=== PATIENT | female | born 1980 | race Caucasian/White ===

== ENCOUNTER 2018-11-02 09:04 | Emergency (ER) | payer MEDICAID, SELFPAY ==
[2018-11-02 09:04] VITALS: BP 140/96; PULSE 113; RESP 18; TEMP 36.7; O2SAT 96; BMI 23.9
[2018-11-02] MEDS: 0.9% Normal Saline 1,000 ML 1000 ML IV (09:18)
--- NOTE | 2018-11-02 09:18 | ED.VIS.GEN ---
History of Present Illness Chief Complaint: Cough Informant: Patient Onset: Weeks - 1 Context: Gradual Onset Timing: Continuous Current Severity: Moderate Maximum Severity: Moderate Narrative: Patient presents with cough and congestion for the past week. She is a smoker developed a productive cough now she feels somewhat lightheaded, she cannot sleep at night because of her cough. She has generalized illness. She has no chest pain. She has no difficulty breathing. She has no rash. She thought she may have had a fever but did not take her temperature. Past Medical History - Allergies and Home Meds Allergies/Adverse Reactions: Allergies Sulfa (Sulfonamide Antibiotics) Allergy (Verified 11/02/18 09:04) Anaphylaxis Primary Care Physician: Care Physician,No Primary [Primary Care Provider] - Past Medical History: None Smoking Status: Current every day smoker Review of Systems All systems negative except as indicated General: Reports: Fever, - - She does feel lightheaded ENT: Reports: Rhinorrhea, - - Sinus tenderness. Denies: Bilateral ear pain Cardiovascular: Denies: Chest pain, Palpitations Respiratory: Reports: Cough, Sputum. Denies: Dyspnea on exertion Gastrointestinal: Denies: Abdominal pain, Nausea Musculoskeletal: Denies: Myalgias, Neck pain Neurological: Denies: Headache, Weakness Physical Exam Vital Signs/Narrative: Vital Signs Temp Pulse Resp BP Pulse Ox 11/02/18 09:04 98.1 F 113 H 18 140/96 H 96 Inital Vital Signs reviewed: Yes General: Well nourished, Well developed Head: Normocephalic Eyes: Perrl ENT: Moist mucous membranes, - - Patient has some rhinorrhea, nasal congestion. Swollen turbinates. Some sinus tenderness in the frontal region. Normal soft palate and posterior pharynx Neck: Supple Cardiovascular: Regular rate, Regular rhythm Respiratory: No distress, - - Active productive cough, no wheezing Abdomen: Soft Back: Nontender, Normal Inspection Extremities: Nontender Skin: Normal color Neurological: Alert, Normal Sensation Diagnostic/Tx/Re-eval - Medical Decision Making Patient likely has bronchitis. She is given an albuterol, x-ray ordered. She also has sinusitis and its been over a week, I do believe she meets criteria for antibiotics for the sinusitis. I will also give her an inhaler for home. She is encouraged to stop smoking Disposition discharge stable condition ED Disposition - Plan for ED Patient: Disposition: Home or Assisted Living Diagnosis: Sinusitis, Bronchitis Instructions: BRONCHITIS, Antiobiotic Treatment (Adult), Acute Sinusitis Prescriptions: Azithromycin 250 mg PO DAILY #5 tab Prescription Printed Referrals: Care Physician,No Primary [Primary Care Provider] - 3-5 Days Nitesh Montes MD [STAFF PHYSICIAN] - 3-5 Days
--- NOTE | 2018-11-02 09:22 | RAD_ITS ---
STUDY: X-RAY CHEST REASON FOR EXAM: Female, 37 years old. One-week history of cough. TECHNIQUE: Single AP portable view of the chest. COMPARISON: None. FINDINGS: Hyperinflation. The lungs are clear. There is no demonstrated pleural abnormality. Normal size heart. Normal mediastinum and chester. Normal visualized pulmonary arteries. Normal visualized aortic arch and descending thoracic aorta. Averaging rikki fixation of the thoracic spine for scoliotic surgery. Residual levoscoliosis. Normal visualized ribs, clavicles, and shoulders. There is no demonstrated abnormality of the visualized soft tissue structures of the upper abdomen. RAD/Chest 1 View (Portable) IMPRESSION: Normal x-ray examination of the chest. Electronically Signed: Tushar Silver, at 10:07 EDT , Service support ,
[2018-11-02 09:34] VITALS: PULSE 78; RESP 18
[2018-11-02] MEDS: Albuterol 2.5 MG/3 ML VIAL.NEB. INHALATION (09:34)
--- NOTE | 2018-11-02 10:11 | ED.DEP ---
ED Disposition - Plan for ED Patient: Disposition: Home or Assisted Living Diagnosis: Sinusitis, Bronchitis Instructions: Acute Sinusitis, BRONCHITIS, Antiobiotic Treatment (Adult) Prescriptions: Azithromycin 250 mg PO DAILY #5 tab Prescription Printed Referrals: Nitesh Montes MD [STAFF PHYSICIAN] - 3-5 Days Care Physician,No Primary [Primary Care Provider] - 3-5 Days
[2018-11-02 10:20] VITALS: PULSE 84; RESP 18; O2SAT 99
== END 2018-11-02 10:20 | disposition home or self-care (01) ==
LOC: ED 09:46
PROVIDERS: Emergency Provider Emergency Medicine
DX: J40 Bronchitis, not specified as acute or chronic (principal); J32.9 Chronic sinusitis, unspecified; F17.200 Nicotine dependence, unspecified, uncomplicated; Z88.2 Allergy status to sulfonamides
CPT/HCPCS: 71045; 94640; 96360; 99283; J7030

== ENCOUNTER 2019-10-22 03:01 | Observation (INO) | payer MEDICAID, SELFPAY ==
[2019-10-22] VITALS (16 sets, daily range): BP systolic 105–145; BP diastolic 65–125; PULSE 54–89; RESP 14–21; TEMP 36.7–37.2; O2SAT 98–100; BMI 26.4; BMI 23.8; BMI 23.9
--- NOTE | 2019-10-22 03:02 | ED.RN ---
NO OLD EKGS IN MUSE
--- NOTE | 2019-10-22 03:16 | EKG12_ITS ---
Test Reason : AM EKG Blood Pressure : / mmHG Vent. Rate : 054 BPM Atrial Rate : 054 BPM P-R Int : 146 ms QRS Dur : 080 ms QT Int : 404 ms P-R-T Axes : 047 005 033 degrees QTc Int : 383 ms Sinus bradycardia with sinus arrhythmia Otherwise normal ECG When compared with ECG of 22-OCT-2019 10:16, MANUAL COMPARISON REQUIRED, DATA IS UNCONFIRMED Confirmed by ARACELI GUILLERMO, ANUJ ([id number]), copy editor AMBROSE CHACON ([id number]) on 10/26/2019 11:05:45 AM Referred By: CIARAN CANALES Confirmed By:ANUJ CHARLES MD
--- NOTE | 2019-10-22 03:17 | ED.VIS.GEN ---
History of Present Illness Chief Complaint: Chest Pain Informant: Patient Onset: Today Current Severity: Moderate Maximum Severity: Moderate Narrative: Patient presents secondary to chest heaviness. She states she went to bed around 9:00 last night and felt okay but woke shortly before arrival with a feeling of chest heaviness as if someone was sitting on her chest. She has slight shortness of breath. She does have increased pain with deep breath. Patient was recently diagnosed with pneumonia and just completed a 10-day course of doxycycline. She states her pneumonia symptoms all improved. She does have a family history of cardiac disease but no personal history. She denies DVT or PE risk factors. - Past Medical History (1) Asthma Status: Chronic Past Medical History - Allergies and Home Meds Allergies/Adverse Reactions: Allergies Sulfa (Sulfonamide Antibiotics) Allergy (Verified 10/22/19 03:05) Anaphylaxis Primary Care Physician: Harris Randall MD [Primary Care Provider] - Prior records reviewed: Yes Lives: Spouse/ Significant Other Smoking Status: Current every day smoker Review of Systems General: Denies: Chills, Fever Eyes: Denies: Visual changes - bilaterally ENT: Denies: Bilateral ear pain Cardiovascular: Reports: Chest pain Respiratory: Reports: Dyspnea. Denies: Cough Gastrointestinal: Denies: Abdominal pain, Nausea, Vomiting, Diarrhea Genitourinary: Denies: Dysuria Musculoskeletal: Denies: Swelling, Extremity Pain Skin: Denies: Rash Neurological: Denies: Headache Hematologic: Denies: Easy bruising, Easy bleeding Allergy: Denies: Uticaria Physical Exam Vital Signs/Narrative: Vital Signs Temp Pulse Resp BP Pulse Ox 10/22/19 03:04 98.9 F 83 18 135/89 H 98 10/22/19 03:02 98.9 F 82 19 H 145/125 H 99 Inital Vital Signs reviewed: Yes General: Well nourished, Well developed Head: Normocephalic ENT: Moist mucous membranes Neck: Supple Cardiovascular: Regular rate, Regular rhythm Respiratory: No distress, CTA bilaterally, Chest nontender Abdomen: Soft, Nontender, Normal bowel sounds Extremities: Nontender, No edema Skin: Normal color Neurological: Alert, Oriented x3 Psychological: Normal affect Diagnostic/Tx/Re-eval Impressions Chest X-Ray 10/22/19 03:19 IMPRESSION: Negative x-ray examination of the chest. No interval change. Electronically Signed: Kali Carrillo, at 3:52 EDT Tel , Service support , 10/22/19 03:19 Chest 1 View (Portable) [RAD] Stat Laboratory Results 10/22/19 10/22/19 10/22/19 03:30 03:30 03:30 WBC 6.8 RBC 4.24 Hgb 13.6 Hct 42.6 MCV 100.5 H MCH 32.1 H MCHC 31.9 L RDW Std Deviation 50.0 H RDW Coeff of Marcy 13.5 Plt Count 338 MPV 9.8 Immature Gran % (Auto) 0.300 Neut % (Auto) 35.6 L Lymph % (Auto) 49.8 H Imperial % (Auto) 7.4 Eos % (Auto) 6.2 H Baso % (Auto) 0.7 Absolute Neuts (auto) 2.4 Absolute Lymphs (auto) 3.36 Nucleated RBC % 0 D-Dimer Quant (PE/DVT) 0.30 Sodium 143 Potassium 3.5 Chloride 109 H Carbon Dioxide 28.0 Anion Gap 6 BUN 11 Creatinine 0.82 Estim Creat Clear Calc 77.70 Est GFR (MDRD) Af Amer 100 Est GFR (MDRD) Non-Af 83 BUN/Creatinine Ratio 13.4 Glucose 88 Calcium 8.3 L Troponin I < 0.015 10/22/19 06:02 WBC RBC Hgb Hct MCV MCH MCHC RDW Std Deviation RDW Coeff of Marcy Plt Count MPV Immature Gran % (Auto) Neut % (Auto) Lymph % (Auto) Imperial % (Auto) Eos % (Auto) Baso % (Auto) Absolute Neuts (auto) Absolute Lymphs (auto) Nucleated RBC % D-Dimer Quant (PE/DVT) Sodium Potassium Chloride Carbon Dioxide Anion Gap BUN Creatinine Estim Creat Clear Calc Est GFR (MDRD) Af Amer Est GFR (MDRD) Non-Af BUN/Creatinine Ratio Glucose Calcium Troponin I 0.034 - EKG Initial EKG Interpretation: Sinus Rhythm - Sinus 84 with no acute ischemia. Follow-up EKG Interpretation: Sinus Rhythm - Sinus at 64 with no acute ischemia. - Medical Decision Making Patient was given aspirin along with morphine and Zofran on arrival. On repeat evaluation she was resting comfortably. Initial blood work is negative. She does have significant family history of heart disease. In light of this we chose to do a repeat delta troponin. Troponin did increase from less than 0.015-0.034. While this value is still technically within the negative range it has at least doubled. I spoke with Dr. Mack Dowling, on-call for cardiology. He believes it is not unreasonable to bring the patient in for cycling of cardiac enzymes to see where this peaks. It may very well remain in the negative range. Patient could then undergo stress test tomorrow morning for complete cardiac rule out. In speaking with the patient she is comfortable with this plan. I will speak with the hospitalist. ED Disposition - Plan for ED Patient: Disposition: Acute Care Hospital [facility] Diagnosis: Chest pain Referrals: Harris Randall MD [Primary Care Provider] -
--- NOTE | 2019-10-22 03:19 | RAD_ITS ---
STUDY: X-RAY CHEST REASON FOR EXAM: Female, 38 years old. c/o cp -- recent discharge from hospital for pneumonia TECHNIQUE: AP COMPARISON: 11/02/2018. FINDINGS: The lungs are clear and expanded. There is no demonstrated pleural abnormality. Normal size heart. Normal mediastinum and chester. Normal visualized pulmonary arteries. Normal visualized aortic arch and descending thoracic aorta. Normal visualized thoracic spine. Normal visualized ribs, clavicles, and shoulders. There is posterior thoracic spinal fixation. There is no demonstrated abnormality of the visualized soft tissue structures of the upper abdomen. RAD/Chest 1 View (Portable) IMPRESSION: Negative x-ray examination of the chest. No interval change. Electronically Signed: Kali Carrillo, at 3:52 EDT Tel , Service support ,
[2019-10-22] MEDS: Ondansetron 4 MG/2 ML Vial IV (03:27)
[2019-10-22] MEDS: Morphine 4 MG/ML Syringe IV (03:27)
[2019-10-22] MEDS: Aspirin 81 MG TAB.CHEW 324 MG PO (03:27)
[2019-10-22] MEDS: 0.9% Normal Saline 1,000 ML 150 ML IV (03:28)
[2019-10-22 03:53] LABS: Absolute Lymphocyte Count 3.36 X10^3/uL (0.83-4.51); Absolute Neutrophil Count 2.4 X10^3/uL (2.0-7.7); Basophil# 0.05 X10^3/uL; Basophil% 0.7 % (0-1); Eosinophil# 0.42 X10^3/uL; Eosinophils% 6.2 % (0-5); Hematocrit 42.6 % (37-47); Hemoglobin 13.6 g/dL (12.0-15.0); Lymphocyte # 3.36 X10^3/ul (4.0); Lymphocyte % 49.8 % (19-41); Mean Corp Hgb Conc 31.9 g/dL (32-36); Mean Corpuscular Hgb 32.1 pg (27.0-32.0); Mean Corpuscular Volume 100.5 fL (81-99); Mean Platelet Vol. 9.8 fl (6.2-12.0); Monocyte% 7.4 % (0-10); NRBC Flagged by Analyzer 0 % (0-5); Neutrophil % 35.6 % (47-70); Platelet Count 338 K/mm3 (150-450); RBC Distribution Width CV 13.5 % (11.6-14.6); Red Blood Count 4.24 M/mm3 (4.2-5.4); White Blood Count 6.8 K/mm3 (4.4-11.0)
[2019-10-22 04:08] LABS: Anion Gap 6 (5-15); BUN 11 mg/dL (7-18); BUN/Creat Ratio 13.4 RATIO (10-20); Calcium,Total 8.3 mg/dL (8.5-10.1); Chloride 109 mmol/L (98-107); Creatinine, Serum 0.82 mg/dL (0.55-1.02); EST Glomerular Filtration Rate 83 mL/min (>60); Est Glom Filt Rate - Afr Amer 100 mL/min (>60); Glucose 88 mg/dL (74-106); Potassium 3.5 mmol/L (3.5-5.1); Sodium Level 143 mmol/L (136-145)
--- NOTE | 2019-10-22 06:00 | EKG12_ITS ---
Test Reason : C.P. Blood Pressure : / mmHG Vent. Rate : 076 BPM Atrial Rate : 076 BPM P-R Int : 132 ms QRS Dur : 082 ms QT Int : 382 ms P-R-T Axes : 051 -04 048 degrees QTc Int : 429 ms Normal sinus rhythm with sinus arrhythmia Low voltage QRS Borderline ECG When compared with ECG of 22-OCT-2019 07:57, MANUAL COMPARISON REQUIRED, DATA IS UNCONFIRMED Confirmed by ARACELI GUILLERMO, ANUJ ([id number]), industrial editor AMBROSE CHACON ([id number]) on 10/26/2019 11:07:12 AM Referred By: ALLY Confirmed By:ANUJ CHARLES MD
--- NOTE | 2019-10-22 07:28 | PCM.HP.STD ---
Problem List (1) SCI (spinal cord injury) Status: Chronic (2) Foot drop, right Status: Chronic History of Present Illness Date of Admission: 10/22/19 Ms Rios is a 38 year old F with a PMH of Asthma, SCI with resultant R foot drop, and tobacco abuse who presented to the ED on 10/22/2019 with CP. She states that she was recently in [place] on vacation and had an episode of CP there as well. At that time she was taken to the ED by squad and given 4 baby aspirin and 2 nitro tablets that resulted in a resolution of her pain. She was diagnosed with PNA there and place on Doxycycline that she just completed this past Wednesday. She states that they asked the physician in [place] why nitro helped if it was PNA and they were not able to give her an answer. Last PM in the middle of the night she awoke with CP and states that it felt like someone was sitting on her chest. It, both times, has been associated with diaphoresis, nausea, SOB and pain radiating down her L arm. She had a sense of impending doom with the first episode but not this one. She has no personal medical history other than mentioned above but she has a very strong family history of cardiac issues on her fathers side. She smokes about 1/2 PPD of cigarettes and has smoked on and off since she was He at 55 from a cardiac event. This was not his first event but the pt was not able to tell me his age when he started having cardiac issues. She also has a family, but not personal, h/o DM. She is currently CP free. Her VSS, although she was initially hypertensive. She has a slight macrocytosis. Her initial Troponin was neg but her delta troponin increased to 0.034. Her EKG shows sinus phillip with no ST-T wave changes. She was given ASA 324 in the ED and morphine. The ED physician discussed the case with Dr. Weaver and he agreed that she should be admitted for enzyme cycling and stress test if her enzymes remained in a neg range. Ms Rios is currently pain free. Pt told nursing that they wanted to admit her in [place] but she couldn't be admitted there, unclear why. Past Medical History Past Medical History (Chronic Problems): Chronic Problems Asthma (Chronic) SCI (spinal cord injury) (Chronic) Foot drop, right (Chronic) Allergies Sulfa (Sulfonamide Antibiotics) Allergy (Verified 10/22/19 03:05) Anaphylaxis Home Medications: Ambulatory Orders Medication Instructions Recorded NK 10/22/19 Surgical History: - - spinal fusion, c-sections Psychiatric History: No pertinent psych hx [employer] History: No pertinent [employer] history Lives: Spouse/ Significant Other Smoking Status: Current every day smoker Tobacco Use: Cigarettes - 1/2 PPD Alcohol: Occasional Drugs: Marijuana Review of Systems Constitutional: Reports: Chills. Denies: Anorexia, Fever, Night Sweats, Malaise, Weakness, Weight Change, Fatigue Eyes: Denies: Blurred vision, Cataracts, Conjunctivae Inflammation, Double vision, Drainage, Eyelid Inflammation, Pain, Redness, Vision Change HEENT: Denies: Difficulty Hearing, Ear Pain, Head Aches, Nasal bleeding, Nasal Congestion, Post Nasal Drip, Sinus Congestion, Sinus Drainage, Sore Throat, Visual Changes Cardiovascular: Reports: Chest Pain, Chest Pressure, Chest Tightness, Heaviness. Denies: Claudication, Edema, Light Headedness, Orthopnea, Palpitations, Paroxysmal Noc. Dyspnea, Syncope Respiratory: Reports: Shortness of Breath - with CP, Shortness of breath at rest - with pain, Shortness of breath upon exertion - with pain. Denies: Cough, Hemoptysis, Pleuritic Pain, Sputum production, Wheezing Gastrointestinal: Reports: Nausea - with CP. Denies: Abdominal Pain, Constipation, Hematemesis, Hematochezia, Melena, Vomiting Genitourinary: Denies: Dysuria, Frequency, Hematuria, Hesitancy, Incontinence, Nocturia, Retention, Urgency Gynecological: Denies: Breast symptoms, Vaginal bleeding Musculoskeletal: Reports: Back Pain. Denies: Foot Pain, Hand Pain, Joint Pain, Joint stiffness, Joint swelling, Joint Tenderness, Leg Pain, Muscle pain, Neck Pain, Shoulder Pain Skin: Denies: Dryness, Jaundice, Lesions, Pruritis, Rash, Skin Changes, Wounds Neurological: Denies: Balance problems, Blurred vision, Double vision, Change in Speech, Slurred speech, Confusion, Difficulty swallowing, Focal weakness, Headaches, Incoordination, Numbness, Tingling, Tremor, Seizures Psychiatric: Denies: Anxiety, Depression, Homicidal Ideations, Suicidal Ideations Endocrine: Denies: Change in Body Habitus, Heat/ Cold Intolerance, Polydipsia, Polyuria Hematologic/ Lymphatic: Denies: Adenopathy, Anemia, Easy Bruising, Easy Bleeding, Petechiae, Purpura VTE Information - Inpt Only VTE Present on Admission: No VTE Mechan Device Prophylaxis: SCD's VTE Pharm Prophylaxis ordered?: No Patient Problems: Active and Suspected Problems Chest pain (Acute) - Physical Exam Vitals/I&O's: Vital Signs Temp Pulse Resp BP Pulse Ox 98.3 F 69 14 125/82 H 100 10/22/19 07:22 10/22/19 07:22 10/22/19 07:22 10/22/19 07:22 10/22/19 07:22 Oxygen Delivery Method Room Air Weight: 67.6 kg Body Mass Index (BMI) 26.4 General: Alert, Oriented x3, Cooperative, No apparent distress, Well developed, Well nourished, - - young WF lying in bed, appears comfortable at this time HEENT: Atraumatic, PERRLA, EOMI, Normocephalic, EAC Clear Oral: Moist Mucosa, No Gingival or Mucosal Lesions/ Ulcerations, - - good dentition, Mallampati 2 Neck: Supple, No JVD, Negative Carotid Bruits, Negative Hepatojugular Reflux, No Nodes, No Nuchal Rigidity, Trachea Midline, Thyroid Normal Size and Texture Lungs: Clear to auscultation, Normal air movement, No rhonchi, No wheeze, No rales Cardiovascular: Regular Rhythm, Normal S1, Normal S2, No murmurs, No Ectopic Activity, Bradycardic, No rub noted, No Gallop Abdomen: Bowel Sounds Present, Soft, Non Tender, Non-Distended, No Hepato-splenomegaly, No hernias noted Extremities: No clubbing, No cyanosis, No edema, Capillary Refill Less than 3 Seconds, Peripheral Pulses Normal Skin: No rashes, No breakdown, - - tattoos Musculoskeletal: No Tenderness to Palpation of Joints or Extremities, Muscle Wasting - R LE, - - R LE Foot drop with DF 2/5 and PF 3+/5, Knee ext 4+/flex 4+, 5/5 L Lymphatic: No Cervical, Supraclavicular, or Inguinal Adenopathy Neurological: Cranial nerves II-XII grossly intact, Neuro grossly intact, Coordination normal, - - 1+ reflexes R LE, 2+ L Psych/Mental Status: Normal Affect, Appropriate, - - very pleasant but scared, Alert and oriented to time, place, person, mood and affect Laboratory Results 10/22/19 03:30: WBC 6.8, RBC 4.24, Hgb 13.6, Hct 42.6, MCV 100.5 H, MCH 32.1 H, MCHC 31.9 L, RDW Std Deviation 50.0 H, RDW Coeff of Marcy 13.5, Plt Count 338, MPV 9.8, Immature Gran % (Auto) 0.300, Neut % (Auto) 35.6 L, Lymph % (Auto) 49.8 H, Burnet % (Auto) 7.4, Eos % (Auto) 6.2 H, Baso % (Auto) 0.7, Absolute Neuts (auto) 2.4, Absolute Lymphs (auto) 3.36, Nucleated RBC % 0 10/22/19 03:30: D-Dimer Quant (PE/DVT) 0.30 10/22/19 03:30: Sodium 143, Potassium 3.5, Chloride 109 H, Carbon Dioxide 28.0, Anion Gap 6, BUN 11, Creatinine 0.82, Estim Creat Clear Calc 77.70, Est GFR (MDRD) Af Amer 100, Est GFR (MDRD) Non-Af 83, BUN/Creatinine Ratio 13.4, Glucose 88, Calcium 8.3 L, Troponin I < 0.015 10/22/19 06:02: Troponin I 0.034 Current Medications Sodium Chloride () 1,000 mls @ 150 mls/hr IV .Q6H40M COUNTS INCLUDE 234 BEDS AT [facility] Last Admin: 10/22/19 03:28 Dose: 150 mls/hr Documented by: Assessment/Plan All Active Problems Chest pain (Acute) Acute Chest Pain -HOP to PCU -cycle troponin -if troponin dont rise will get Nuc stress test in the am, if become + will consult cardiology -Troponin< 0.015-->0.034 in ED -nitro prn -morphine prn -check lipids -cardiac diet and NPO after MN -d-dimer was neg -check urine tox -check urine preg H/O SCI -resultant weakness with R LE foot drop, therefore unable to do TM stress testing Tobacco Abuse -recommend cessation DVT prophylaxis -low risk -ambulation Code Status -Full Inpatient E&M: 67044 Init Hosp L2
--- NOTE | 2019-10-22 07:42 | EKG12_ITS ---
Test Reason : CP ADMISSION Blood Pressure : / mmHG Vent. Rate : 057 BPM Atrial Rate : 057 BPM P-R Int : 134 ms QRS Dur : 082 ms QT Int : 420 ms P-R-T Axes : 039 -05 029 degrees QTc Int : 408 ms Sinus bradycardia Otherwise normal ECG When compared with ECG of 22-OCT-2019 06:01, MANUAL COMPARISON REQUIRED, DATA IS UNCONFIRMED Confirmed by ARACELI GUILLERMO, ANUJ ([id number]), managing editor AMBROSE CHACON ([id number]) on 10/26/2019 11:07:28 AM Referred By: ALLY Confirmed By:ANUJ CHARLES MD
[2019-10-22 08:24] LABS: Internal QC Validated? YES +Cl - CLEAR BKGD
[2019-10-22 08:26] LABS: Pregnancy, Urine Negative Negative
[2019-10-22 08:53] LABS: Amphetamine Urine VISTA NEGATIVE (<1000 ng/mL); Barbiturate Urine VISTA NEGATIVE (< 200 ng/mL); Benzodiazepine Urine VISTA NEGATIVE (< 200 ng/mL); Cocaine Urine VISTA NEGATIVE (< 300 ng/mL); Ecstacy Urine VISTA NEGATIVE (< 500 ng/mL); Methadone Urine VISTA NEGATIVE (< 300 ng/mL); PCP Urine VISTA NEGATIVE (< 25 ng/mL); THC Urine VISTA POSITIVE (< 50 ng/mL); Vista UDS pH Range 6
--- NOTE | 2019-10-22 10:04 | EKG12_ITS ---
Test Reason : REPEAT CP Blood Pressure : / mmHG Vent. Rate : 064 BPM Atrial Rate : 064 BPM P-R Int : 136 ms QRS Dur : 082 ms QT Int : 414 ms P-R-T Axes : 046 -01 035 degrees QTc Int : 427 ms Normal sinus rhythm with sinus arrhythmia Normal ECG Confirmed by ALIZA GUILLERMO, JUDI ([id number]), metropolitan editor AMBROSE CHACON ([id number]) on 10/26/2019 11:35:06 AM Referred By: VINI Confirmed By:JUDI ABRAMS MD
[2019-10-22] MEDS: Nitroglycerin (INPATIENT USE) 0.4 MG TAB.SUBL SUBLINGUAL (10:16)
[2019-10-22] MEDS: Acetaminophen 325 MG Tablet 650 MG PO ×2 (10:25→17:37)
--- NOTE | 2019-10-22 12:23 | CT_ITS ---
STUDY: CTA CHEST REASON FOR EXAM: Female, 38 years old. CHEST PAIN, LT ARM PAIN, SOB, RECENT LD TRAVEL, NEG COVID TEST, 25 YR SMOKER X 1/2 PPD, SPINE SURG D/T SCOLIOSIS, ASTHMA, PREV C-SECTIONS RADIATION DOSAGE (If Supplied By Facility): CTDIvol = ( 5.40 ) mGy, DLP = ( 195.27 ) mGycm TECHNIQUE: The examination was performed with the intravenous administration of IV 100mL Isovue-370. Post-processing of the angiographic images was performed, with multiplanar reformation and 3D reconstruction. Individualized dose optimization techniques were used for this CT. COMPARISON: None. FINDINGS: Normal enhancement of the main pulmonary artery and right and left pulmonary arteries. Normal enhancement of the bilateral peripheral pulmonary arteries. There is no demonstrated pulmonary embolism. Normal thoracic aorta and visualized great vessels. There is no demonstrated aortic dissection. Normal heart and pericardium. Normal mediastinum. Normal hilar regions. Normal visualized trachea and bronchi. The lungs are well expanded. Mild bilateral apical scarring. Linear scarring in the lingula. Normal pleura. Normal chest wall structures. Spinal rods. Normal visualized upper abdomen. CT/CTA Chest W/WO Contrast IMPRESSION: Normal CTA chest examination, without a demonstrated pulmonary embolism or arterial dissection. Electronically Signed: Dru Russ MD at 13:58 EDT Tel , Service support ,
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
--- NOTE | 2019-10-22 12:53 | CASEMGMT ---
Tertiary facilities that are In-network w/[employer] if transfer is recommended is as follows: [facility], [facility], [facility], [facility], [facility], [facility], [facility] ([facility]), and . Jennifer BSN RN CM
[2019-10-22] MEDS: 0.9% Normal Saline 1,000 ML 75 ML IV (13:14)
[2019-10-22] MEDS: Enoxaparin 60 MG/0.6 ML Syringe SC (14:44)
[2019-10-22] MEDS: Clopidogrel Bisulfate 300 MG Tablet PO (14:44)
--- NOTE | 2019-10-22 15:33 | NURSING ---
Patient noted to be vaping in room. This RN informed patient that no smoking of any kind is permitted at [facility]. Vaping device was locked in [employer]
[2019-10-22] MEDS: Morphine 2 MG/ML Syringe IV (17:33)
[2019-10-22] MEDS: 0.9% Saline Lock 10 ML Syringe IV (17:33)
[2019-10-22] MEDS: Metoprolol Tartrate 25 MG Tablet 12.5 MG PO (22:12)
[2019-10-22] MEDS: Atorvastatin Calcium 80 MG Tablet PO (22:13)
[2019-10-23] VITALS (16 sets, daily range): BP systolic 99–120; BP diastolic 59–83; PULSE 57–83; RESP 14–18; TEMP 36.1–36.9; O2SAT 96–100
[2019-10-23] MEDS: 0.9% Normal Saline 1,000 ML 75 ML IV ×2 (02:21→08:46)
--- NOTE | 2019-10-23 05:55 | EKG12_ITS ---
Test Reason : CP Blood Pressure : / mmHG Vent. Rate : 084 BPM Atrial Rate : 084 BPM P-R Int : 138 ms QRS Dur : 080 ms QT Int : 372 ms P-R-T Axes : 050 -13 050 degrees QTc Int : 439 ms Normal sinus rhythm Normal ECG Confirmed by ALIZA GUILLERMO, JUDI ([id number]), avid editor AMBROSE CHACON ([id number]) on 10/26/2019 11:34:50 AM Referred By: VINI Confirmed By:JUDI ABRAMS MD
--- NOTE | 2019-10-23 05:55 | ECHOD_ITS ---
Reason For Study: Chest pain Procedure This was a 2D Doppler, Color Flow transthoracic echocardiogram. The exam was of adequate technical quality. Exam performed portable in patient room. Left Ventricle Normal LV size. Left ventricular systolic function is normal. The estimated ejection fraction is 55 %. No evidence for diastolic dysfunction. No regional wall motion abnormalities noted. Right Ventricle Normal RV size. Normal systolic function. Atria Normal left atrium. Normal right atrium. No doppler evidence for ASD. Mitral Valve There is no mitral annular calcification. Normal mitral valve. Trivial mitral valve insufficiency. Tricuspid Valve Normal tricuspid valve. Mild tricuspid valve insufficiency. Right ventricular systolic pressure estimated to be 17 mmHg. Aortic Valve Trisinus/trileaflet aortic valve. Normal aortic valve. Pulmonic Valve The pulmonic valve is not well visualized. Great Vessels Normal sized aortic root. Pericardium/Pleural No pericardial effusion. MMode/2D Measurements & Calculations LVIDd: 4.4 cm IVSd: 0.79 cm Ao root diam: 2.9 cm LVIDs: 2.9 cm LVPWd: 0.78 cm RVDd: 3.2 cm FS: 33.8 % LAV(MOD-bp): 35.5 ml LVAd ap4: 26.5 cm2 SV(MOD-sp4): 42.7 ml LAV(MOD-bp) Indexed: 20.6 ml/m2 EDV(MOD-sp4): 70.5 ml LAV(MOD-sp2): 43.7 ml EDV(sp4-el): 70.4 ml LAV(MOD-sp4): 28.7 ml LVAs ap4: 15.4 cm2 ESV(MOD-sp4): 27.8 ml ESV(sp4-el): 27.8 ml EF(MOD-sp4): 60.6 % EF(sp4-el): 60.5 % SV(sp4-el): 42.6 ml LA A4 area: 13.1 cm2 LA dimension(2D): 3.2 cm RA A4 area: 14.2 cm2 Doppler Measurements & Calculations MV E max mehrdad: 96.0 cm/sec Lat Peak E' Mehrdad: 17.6 cm/sec Med Peak E' Mehrdad: 15.8 cm/sec MV A max mehrdad: 47.0 cm/sec E/E' lat: 5.4 E/E' med: 6.1 MV E/A: 2.0 Ao V2 max: 123.9 cm/sec LV V1 max: 97.9 cm/sec TR max mehrdad: 180.5 cm/sec Ao max P.1 mmHg LV V1 max P.8 mmHg TR max P.0 mmHg Interpretation Summary Left ventricular systolic function is normal. The estimated ejection fraction is 55 %. Trivial mitral valve insufficiency. Mild tricuspid valve insufficiency. Right ventricular systolic pressure estimated to be 17 mmHg. No evidence for diastolic dysfunction. Ordering Physician: Nitesh Weaver Referring Physician: aHrris Randall M.D. Performed By: Corazon Cavazos [facility]
[2019-10-23] MEDS: Aspirin E.C. 81 MG Tablet PO (06:25)
[2019-10-23] MEDS: Clopidogrel Bisulfate 75 MG Tablet PO (06:25)
[2019-10-23 06:38] LABS: Absolute Lymphocyte Count 1.79 X10^3/uL (0.83-4.51); Absolute Neutrophil Count 3.1 X10^3/uL (2.0-7.7); Basophil# 0.04 X10^3/uL; Basophil% 0.7 % (0-1); Eosinophil# 0.39 X10^3/uL; Eosinophils% 6.8 % (0-5); Hematocrit 40.6 % (37-47); Lymphocyte # 1.79 X10^3/ul (4.0); Lymphocyte % 31.2 % (19-41); Mean Corpuscular Hgb 32.3 pg (27.0-32.0); Mean Corpuscular Volume 100.7 fL (81-99); NRBC Flagged by Analyzer 0 % (0-5); Neutrophil # 3.09 X10^3/uL (2.7-7.7); Platelet Count 307 K/mm3 (150-450); RBC Distribution Width CV 13.2 % (11.6-14.6); RBC Distribution Width SD 49.8 fl (35.1-43.9); Red Blood Count 4.03 M/mm3 (4.2-5.4); White Blood Count 5.7 K/mm3 (4.4-11.0)
[2019-10-23 07:13] LABS: Anion Gap 4 (5-15); BUN 7 mg/dL (7-18); BUN/Creat Ratio 9.8 RATIO (10-20); Calcium,Total 8.3 mg/dL (8.5-10.1); Chloride 110 mmol/L (98-107); Cholesterol 151 mg/dL (200); Creatinine, Serum 0.72 mg/dL (0.55-1.02); EST Glomerular Filtration Rate 97 mL/min (>60); Est Glom Filt Rate - Afr Amer 118 mL/min (>60); Estimated Creatinine Clearance 92.38 ml/min; Glucose 93 mg/dL (74-106); High Density Lipoprotein 30 mg/dL; Magnesium 2.1 mg/dL (1.6-2.6); Phosphorus 3.3 mg/dL (2.5-4.9); Sodium Level 139 mmol/L (136-145); Thyroid Stim Hormone (TSH) 3.41 uIU/mL (0.358-3.74); Triglycerides 297 mg/dL; Very Low Density Lipoprotein 59 mg/dL (5-40)
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
--- NOTE | 2019-10-23 09:07 | CL.D_ITS ---
Patient Name: BARBARA CARLSON Study Date: 10/23/2019 Performing: Nitesh Weaver MD Ht: 64 inches 163 cm : 1980 Wt: 150.1 lbs 68 kg Age: 38 Gender: female BSA: 1.73 PROCEDURE(S) PERFORMED [id number]-[id number]/COR/LV CLINICAL PROFILE AND INDICATIONS Indications: Suspected CAD Heart Failure: None Stress/Imaging Stress/Image Study Performed: No Angina Classification Anginal Classification w/in 2 Weeks: CCS IV CAD Presentations: Non-STEMI. CONCLUSIONS Normal Left Ventricular End Diastolic Pressure Normal LV size, wall motion,and systolic function LVEF: by LV gram 55 % Normal coronary arteries RECOMMENDATIONS Risk factor modification Medical therapy DESCRIPTION OF PROCEDURE The patient arrived to the procedure lab. The risks and benefits of the procedure as well as a full d escription of our services here and current unavailability of surgical backup were fully explained to the patient and/or their significant other prior to the catheterization. The Timeout was completed, verifying the correct patient and procedure. The patient's procedural site was prepped and draped in the usual fashion. Local anesthetic was given subcutaneously to right radial region with Lidocaine 2% . Using a modified Seldinger technique, arterial access was obtained via the right radial artery, a 6 Fr sheath was inserted. Left Coronary Artery selective angiography was performed in multiple views u sing a 5 Fr. 4.0 [place] catheter. Right Coronary Artery selective angiography was then performed in mu ltiple views using a 5 Fr. 4.0 [place] catheter. Left Ventriculography was performed in [place]KLIN projection using a 5 Fr. Pigtail catheter. LV to AO pullback pressures were then recorded.The arterial sheath was pulled and a TR Band was applied for hemostasis w/ 12ml air CORONARY ANGIOGRAPHY DOMINANCE: Right Dominant LEFT HEART ASSESSMENT Left Ventricular Ejection Fraction: by LV Gram 55 % Normal LV wall motion Normal Left Ventricular End Diastolic Pressure LVEDP: 11 mmHg LEFT MAIN: Angiographically normal LEFT ANTERIOR DESCENDING ARTERY: Angiographically normal CIRCUMFLEX ARTERY: Angiographically normal RIGHT CORONARY ARTERY: Angiographically normal AORTIC ROOT: Angiographically normal COMPLICATIONS No Complications PROCEDURE MEDICATIONS Versed 1 mg IV Fentanyl 50 mcg IV Versed 1 mg IV Fentanyl 50 mcg IV Oxygen: 2 L/min via nasal cannula Heparin diluted in 23cc Heparinized saline. Patient given 10cc IA of this solution. 10/23/2019 07:44: 18 Verapamil 2.5mg, Ntg 100mcgs, 2000 units of Heparin diluted in 23cc Heparinized saline. Patient give n 10cc IA of this solution. 10/23/2019 07:44:18 SUMMARY OF HEMODYNAMIC DATA Time AIR REST ECG 07:28:44 AO 112/73 (90) SA 07:54:40 LV 125/-22, 14 08:04:34 LV 129/-22, 11 08:04:41 LV 124/-21, 11 08:05:24 LVp 111/-17, 3 08:05:29 AOp 123/65 (90) 08:05:35 Signed By Nitesh Weaver MD On 10/23/2019 09:06:33 Nitesh Weaver MD
--- NOTE | 2019-10-23 10:29 | PCM.DC ---
- Discharge Diagnoses Current Active Problems: Current Active and Chronic Problems Chest pain (Acute) SCI (spinal cord injury) (Chronic) Foot drop, right (Chronic) Abnormal cardiac enzyme level (Acute) You will use the following diet at home:: Cardiac Your food should be the consistency of: Regular Discharge Activity: Return to Normal Activity Weight Bearing Status: Full weight bearing Call your doctor if you observe: Fever of 101 or Higher, Shortness of breath, Dizziness, Fainting spells, Chest pain, Increased palpitations (irregular heartbeat), Uncontrolled pain Allergies/Adverse Reactions: Allergies Sulfa (Sulfonamide Antibiotics) Allergy (Verified 10/22/19 03:05) Anaphylaxis Medications to take at Discharge Aspirin E.C. [Ecotrin] 81 mg PO DAILY@0800 #90 tab 10/23/19 Atorvastatin Calcium [Lipitor] 10 mg PO QHS #90 tab 10/23/19 Clopidogrel Bisulfate [Plavix] 75 mg PO DAILY #30 tab 10/23/19 Metoprolol Tartrate [Lopressor (beta juvencio)] 12.5 mg PO BID #90 tab 10/23/19 The following prescriptions were given: Aspirin E.C. [Ecotrin] 81 mg PO DAILY@0800 #90 tab Transmission Status: Pending to [address] Atorvastatin Calcium [Lipitor] 10 mg PO QHS #90 tab Transmission Status: Pending to [address] Metoprolol Tartrate [Lopressor (beta juvencio)] 12.5 mg PO BID #90 tab Transmission Status: Pending to [place] [id number] [facility] Clopidogrel Bisulfate [Plavix] 75 mg PO DAILY #30 tab Transmission Status: Pending to [address] Primary Care Physician: Harris Randall MD [Primary Care Provider] - Please follow up with your Primary Care Physician in: 1-2 weeks. Test Results: Test results from this visit will be discussed in further detail at your follow-up appointment, if applicable. Please Follow Up With: Nitesh Weaver MD When: 3-4 weeks.
--- NOTE | 2019-10-23 13:29 | DS.PCM_ITS ---
Discharge Date and Diagnosis - Problem List Patient Problems: Active and Suspected Problems (Last Updated 10/23/19 @ 10:49 by Jessica Sarah) Chest pain (Acute) Abnormal cardiac enzyme level (Acute) Date of Admission: 10/22/19 Date of Discharge: 10/23/19 - Primary Discharge Diagnosis Acute Problems: Active Problems (Last Updated 10/23/19 @ 10:49 by Jessica Sarah) Acute non-ST elevation SD. - Secondary Discharge Diagnosis Chronic Problems: Chronic Problems (Last Updated 10/23/19 @ 10:49 by Jessica Sarah) Asthma (Chronic) SCI (spinal cord injury) (Chronic) Foot drop, right (Chronic) Hospital Course and Treatment Imaging Results: 10/23/19 05:55 Echo Complete [ECHO] AM (NON MEDS) Clinical Impression(s) from Imaging Studies Chest X-Ray 10/22/19 03:19 IMPRESSION: Negative x-ray examination of the chest. No interval change. Electronically Signed: Kali Carrillo at 3:52 EDT Tel , Service support , Chest CTA 10/22/19 12:23 IMPRESSION: Normal CTA chest examination, without a demonstrated pulmonary embolism or arterial dissection. Electronically Signed: Dru Russ MD at 13:58 EDT Tel , Service support , Dr. Weaver, cardiology. Procedures: 2-D Echocardiogram, Cardiac catheterization, EKG Summary of Care Provided: Patient seen and examined on the day of discharge and appeared to be stable to be discharged home. She had no more chest pain. Denied shortness of breath, headache, dizziness or lightheadedness. Her vital signs are stable. The patient is a 38 year old F presented to the emergency room because of chest pain. Her EKG revealed no evidence of acute ischemic changes. Initial troponin was normal and then troponin started to go up. She was found to have acute non-ST elevation SD. CTA chest done and showed no PE or dissection. Her d- dimer was normal. Chest x-ray showed no acute findings. Her routine blood work was unremarkable. Serum test was negative. Urine drug screen was positive for opioids and cannabinoids. Cardiology consulted and patient underwent cardiac catheterization that revealed normal coronary arteries without evidence of stenosis or acute blockage. No interventions performed. 2D echocardiogram revealed ejection fraction 55%, RVSP of 17, no evidence of diastolic dysfunction. Patient treated medically with aspirin, statins, beta- blockers and Plavix. After discussion with cardiology, cardiology recommended to keep patient on Plavix for 1 month for now although she had no stents were p laced. Patient discharged home in a stable condition, discharged on aspirin, Lipitor, Plavix and metoprolol, recommended follow-up with PCP in 1 week and follow-up with cardiology in 3 to 4 weeks. Patient Problems: Active and Suspected Problems (Last Updated 10/23/19 @ 10:49 by Jessica Sarah) Chest pain (Acute) Abnormal cardiac enzyme level (Acute) - Physical Exam Vitals/I&O's: Vital Signs Temp Pulse Resp BP Pulse Ox 97.0 F L 67 16 109/63 98 10/23/19 08:30 10/23/19 13:25 10/23/19 13:25 10/23/19 13:25 10/23/19 13:25 Oxygen Delivery Method Room Air Weight: 149 lb 4.047 oz Body Mass Index (BMI) 23.8 Intake and Output for Last 24 Hours 10/21/19 10/22/19 10/23/19 23:59 23:59 23:59 Intake Total 2436.25 / 2436.25 766.25 / 766.25 Output Total 550 / 550 Balance 1886.25 / 1886.25 766.25 / 766.25 General: Alert, Oriented x3, Cooperative, No apparent distress HEENT: Atraumatic, PERRLA, EOMI, Normocephalic Oral: Moist Mucosa, No Gingival or Mucosal Lesions/ Ulcerations Neck: Supple, No JVD, Negative Carotid Bruits Lungs: Clear to auscultation, Normal air movement, No rhonchi, No wheeze, No rales Cardiovascular: Regular rate, Regular Rhythm, Normal S1, Normal S2, PMI Normal Abdomen: Bowel Sounds Present, Soft, Non Tender, Non-Distended, No Hepato- splenomegaly Extremities: No clubbing, No cyanosis, No edema Skin: No rashes, No breakdown Lymphatic: No Cervical, Supraclavicular, or Inguinal Adenopathy Neurological: Cranial nerves II-XII grossly intact, Neuro grossly intact Psych/Mental Status: Normal Affect, Appropriate Laboratory Results 10/22/19 14:50: Troponin I 0.209 H 10/23/19 06:12: WBC 5.7, RBC 4.03 L, Hgb 13.0, Hct 40.6, MCV 100.7 H, MCH 32.3 H , MCHC 32.0, RDW Std Deviation 49.8 H, RDW Coeff of Marcy 13.2, Plt Count 307, MPV 10.0, Immature Gran % (Auto) 0.300, Neut % (Auto) 54.0, Lymph % (Auto) 31.2, [place]on % (Auto) 7.0, Eos % (Auto) 6.8 H, Baso % (Auto) 0.7, Absolute Neuts (auto) 3.1, Absolute Lymphs (auto) 1.79, Nucleated RBC % 0 10/23/19 06:12: Sodium 139, Potassium 4.0, Chloride 110 H, Carbon Dioxide 25.0, Anion Gap 4 L, BUN 7, Creatinine 0.72, Estim Creat Clear Calc 92.38, Est GFR (MDRD) Af Amer 118, Est GFR (MDRD) Non-Af 97, BUN/Creatinine Ratio 9.8 L, Glucose 93, Calcium 8.3 L, Phosphorus 3.3, Magnesium 2.1, Triglycerides 297 H, Cholesterol 151, LDL Cholesterol 62, VLDL Cholesterol 59 H, HDL Cholesterol 30 L , TSH 3.41 10/23/19 06:12: Troponin I 0.053 H Current Medications Acetaminophen (Tylenol) 650 mg PO Q6H PRN PRN PRN Reason: Pain Score 1-10/Temp > 100.7 F Last Admin: 10/22/19 17:37 Dose: 650 mg Documented by: Al Hydroxide/Mg Hydroxide (Mylanta Ii) 30 ml PO Q6H PRN PRN PRN Reason: Gastric Burning Albuterol Sulfate (Ventolin Aerosols) 2.5 mg INHALATION Q2H PRN PRN PRN Reason: SOB/Wheezing Aspirin (Ecotrin) 81 mg PO DAILY@0800 COUNTS INCLUDE 234 BEDS AT THE [facility] Last Admin: 10/23/19 06:25 Dose: 81 mg Documented by: Atorvastatin Calcium (Lipitor) 10 mg PO QHS COUNTS INCLUDE 234 BEDS AT THE [facility] Clopidogrel Bisulfate (Plavix) 75 mg PO DAILY COUNTS INCLUDE 234 BEDS AT THE [facility] Last Admin: 10/23/19 06:25 Dose: 75 mg Documented by: Sodium Chloride () 250 mls @ 15 mls/hr IV .[id number] PRN PRN Reason: Saline Flush Sodium Chloride () 250 mls @ 15 mls/hr IV .[id number] PRN PRN Reason: Additional IVPB Infusion Sodium Chloride () 1,000 mls @ 75 mls/hr IV .[id number] COUNTS INCLUDE 234 BEDS AT THE [facility] Last Infusion: 10/23/19 07:00 Dose: 0 mls/hr Documented by: Sodium Chloride () 1,000 mls @ 15 mls/hr IV .Q48H COUNTS INCLUDE 234 BEDS AT THE [facility] Last Admin: 10/23/19 08:46 Dose: Not Given Documented by: Sodium Chloride () 1,000 mls @ 75 mls/hr IV .[id number] COUNTS INCLUDE 234 BEDS AT THE [facility] Last Admin: 10/23/19 08:46 Dose: 75 mls/hr Documented by: Labetalol HCl (Trandate) 10 mg IV Q4H PRN PRN PRN Reason: SBP>160 Melatonin (Melatonin) 3 mg PO QHS PRN PRN PRN Reason: INSOMNIA Metoprolol Tartrate (Lopressor (Beta Roxanna)) 12.5 mg PO BID COUNTS INCLUDE 234 BEDS AT THE [facility] Last Admin: 10/22/19 22:12 Dose: 12.5 mg Documented by: Morphine Sulfate () 2 mg IV Q3H PRN PRN PRN Reason: Pain Score 6-10/10 Last Admin: 10/22/19 17:33 Dose: 2 mg Documented by: Nicotine (Nicoderm Cq (Pbkc)) 14 mg TRANSDERM. DAILY COUNTS INCLUDE 234 BEDS AT THE [facility] Last Admin: 10/23/19 08:50 Dose: 14 mg Documented by: Nitroglycerin (Nitrostat) 0.4 mg SUBLINGUAL Q5M PRN PRN Reason: CARDIAC/CHEST PAIN Last Admin: 10/22/19 10:16 Dose: 0.4 mg Documented by: Ondansetron HCl (Zofran) 4 mg IV Q8H PRN PRN PRN Reason: NAUSEA/VOMITING Sodium Chloride () 10 - 40 ml IV UD PRN PRN Reason: SALINE FLUSH Last Admin: 10/22/19 17:33 Dose: 10 ml Documented by: Discharge Activity: Return to Normal Activity Weight Bearing Status: Full weight bearing Call your doctor if you observe: Fever of 101 or Higher, Shortness of breath, Dizziness, Fainting spells, Chest pain, Increased palpitations (irregular heartbeat), Uncontrolled pain Home Medications: Medications to take at Discharge Aspirin E.C. [Ecotrin] 81 mg PO DAILY@0800 #90 tab 10/23/19 Atorvastatin Calcium [Lipitor] 10 mg PO QHS #90 tab 10/23/19 Clopidogrel Bisulfate [Plavix] 75 mg PO DAILY #30 tab 10/23/19 Metoprolol Tartrate [Lopressor (beta roxanna)] 12.5 mg PO BID #90 tab 10/23/19 Following Prescriptions Were Given to Patient: Aspirin E.C. [Ecotrin] 81 mg PO DAILY@0800 #90 tab Transmission Status: Received by [address] Atorvastatin Calcium [Lipitor] 10 mg PO QHS #90 tab Transmission Status: Received by [address] Metoprolol Tartrate [Lopressor (beta roxanna)] 12.5 mg PO BID #90 tab Transmission Status: Received by [address] Clopidogrel Bisulfate [Plavix] 75 mg PO DAILY #30 tab Transmission Status: Received by [address] Primary Care Physician: Harris Randall MD [Primary Care Provider] - Please follow up with your Primary Care Physician in: 1-2 weeks. Please Follow Up With: Nitesh Weaver MD When: 3-4 weeks. Disposition: Home Minutes spent on discharge:: 29 Patient Condition:: Stable Medical Necessity - Tobacco Use Smoking Status: Current every day smoker Tobacco Use: Cigarettes Meaningful Use Info Meaningful Use Diagnoses (Choose all that apply): None applicable OBSV E&M: 39407 Observation care discharge
[2019-10-23] MEDS: Metoprolol Tartrate 25 MG Tablet 12.5 MG PO (13:30)
== END 2019-10-23 10:29 | disposition home or self-care (01) ==
LOC: ED 06:47 → PCU 07:11
PROVIDERS: Internal Medicine Cardiovascular Disease; Admitting Provider Internal Medicine; Emergency Provider Emergency Medicine; PCP Internal Medicine; Visit Provider Hospitalist
DX: I21.4 Non-ST elevation (NSTEMI) myocardial infarction (principal); J45.909 Unspecified asthma, uncomplicated; M21.371 Foot drop, right foot; F17.210 Nicotine dependence, cigarettes, uncomplicated; I34.0 Nonrheumatic mitral (valve) insufficiency; Z82.49 Family history of ischemic heart disease and other diseases of the circulatory system; Z86.718 Personal history of other venous thrombosis and embolism
CPT/HCPCS: 36415; 71045; 71275; 80048; 80061; 80307; 81025; 83735; 84100; 84443; 84484; 85025; 85379; 93005; 93306; 93458; 96361; 96372; 96374; 96375; 96376; 99152; 99153; 99218; 99251; 99285; 99406; J7030; Q9967; A4216; C1769; C1894; G0378; G0463; J2405

== ENCOUNTER 2021-03-14 08:57 | Emergency (ER) | payer MEDICAID, SELFPAY ==
[2021-03-14 08:59] VITALS: BP 137/103; PULSE 115; RESP 20; TEMP 37.1; O2SAT 100; BMI 27.5
--- NOTE | 2021-03-14 09:17 | EKG12_ITS ---
Test Reason : CP Blood Pressure : / mmHG Vent. Rate : 107 BPM Atrial Rate : 107 BPM P-R Int : 136 ms QRS Dur : 078 ms QT Int : 330 ms P-R-T Axes : 047 -42 032 degrees QTc Int : 440 ms Sinus tachycardia Left axis deviation Abnormal ECG Confirmed by PAMELA GUILLERMO, CELESTE ([id number]), editor index AMBROSE CHACON ([id number]) on 03/17/2021 10:40:11 A M Referred By: DENI Confirmed By:ALEXANDRE SANTIAGO MD
--- NOTE | 2021-03-14 09:30 | RAD_ITS ---
STUDY: X-RAY CHEST REASON FOR EXAM: Female, 40 years old. Fever, expiratory wheezing, rales left, COVID-like TECHNIQUE: Single AP portable view of the chest. COMPARISON: Comparison is made with prior study dated 10/22/2019. FINDINGS: EKG electrodes are seen. The lungs are clear and expanded. There is no demonstrated pleural abnormality. Normal size heart. Normal mediastinum and chester. Normal visualized pulmonary arteries. Normal visualized aortic arch and descending thoracic aorta. The patient is status post rikki fixation of the thoracic spine incomplete with prior scoliosis surgery. Normal visualized ribs, clavicles, and shoulders. There is no demonstrated abnormality of the visualized soft tissue structures of the upper abdomen. RAD/Chest 1 View (Portable) IMPRESSION: The lungs are clear. Electronically Signed: Tushar Silver MD at 10:11 EST , Service support ,
[2021-03-14 09:40] LABS: Absolute Lymphocyte Count 0.93 X10^3/uL (0.83-4.51); Absolute Neutrophil Count 4.3 X10^3/uL (2.0-7.7); Basophil# 0.04 X10^3/uL; Basophil% 0.6 % (0-1); Eosinophil# 0.44 X10^3/uL; Hematocrit 44.6 % (37-47); Hemoglobin 15.1 g/dL (12.0-15.0); Lymphocyte # 0.93 X10^3/ul (0.83-4.51); Lymphocyte % 14.8 % (19-41); Mean Corp Hgb Conc 33.9 g/dL (32-36); Mean Corpuscular Hgb 33.2 pg (27.0-32.0); Mean Platelet Vol. 9.8 fl (6.2-12.0); NRBC Flagged by Analyzer 0 % (0-5); Neutrophil # 4.34 X10^3/uL (2.7-7.7); Neutrophil % 69.3 % (47-70); POSITIVE COUNT YES; RBC Distribution Width CV 13.3 % (11.6-14.6); RBC Distribution Width SD 48.4 fl (35.1-43.9); Red Blood Count 4.55 M/mm3 (4.2-5.4); White Blood Count 6.3 K/mm3 (4.4-11.0)
[2021-03-14] MEDS: Ondansetron ODT 4 MG Tablet PO (09:40)
--- NOTE | 2021-03-14 09:42 | ED.VIS.DYS ---
HPI History of Present Illness Chief Complaint: Shortness of Breath Detail of Chief Complaint: Chief complaint is shortness of breath. Constellation of symptoms Informant: patient Onset/Context/Timing Onset: Yesterday (Documented temperature of 101.0 ?F) Context: sudden Timing: Intermittent and Waxes and wanes Quality: Positive for Dyspnea on exertion and Wheezing; Negative for Orthopnea Current Severity: Mild Maximum Severity: Severe Worsened by: Exertion and Coughing Relieved by: Nothing Associated Symptoms cough, rhinorrhea, post nasal drip, fever, sore throat, chills and sweats; Negative for ear pain Chest Pain: Positive for Tightness (With breathing) Narrative Narrative: Patient is a 40-year-old non-smoker who presents with upper respiratory symptoms. She states she has been fatigued for several days. She has had decreased appetite. Yesterday she had no taste. Yesterday she also reported document temperature 101.0 ?F. She does endorse headache, rhinorrhea, congestion and postnasal drainage. She does endorse sore throat. She does endorse cough that is nonproductive. She does report tightness in her chest with breathing. She denies history of VTE. She has no risk factors. She denies leg pain, swelling discoloration. She does endorse nausea and diarrhea. She denied abdominal pain or vomiting. She states multiple family members are ill. None have been tested. She states she is unvaccinated. She does give orthostatic symptoms. She states she had poor p.o. intake over the past 24 hours. PE Risk Factors: Negative for Cancer, OCP + Smoking + > 35, Prior DVT or PE, Recent immobilization, Recent surgery and Recent travel Prior similar symptoms: No Recent Illness/Hospitalization: No PFSH PFSH Medical History History of left heart catheterization (LHC) (~10/23/19) Home Medications NK 03/14/21 [History Last Taken Unknown] prednisone 60 mg PO DAILY #15 tablet 03/14/21 [Rx Last Taken Unknown] Allergy/AdvReac Type Severity Reaction Status Date / Time Sulfa (Sulfonamide Allergy Anaphylaxis Verified 03/14/21 08:58 Antibiotics) Social History (Updated 03/14/21 @ 09:[address] Isaiah Krause MD) household members: spouse and children Smoking Status: Current every day smoker tobacco type: cigarettes alcohol intake: current alcohol intake frequency: other substance use type: does not use ROS ROS ED Constitutional Constitutional ED: Reports chills and fever(s); Denies weight loss Eyes Eyes: Denies blurry vision, change in vision or diplopia ENT ENT ED: Reports rhinorrhea and sore throat; Denies ear pain Cardiovascular Cardiovascular: Reports chest pain; Denies orthopnea, palpitations, paroxysmal nocturnal dyspnea or racing heartbeat Respiratory/Chest Respiratory/Chest: Reports cough, dyspnea and dyspnea on exertion; Denies orthopnea, paroxysmal nocturnal dyspnea or sputum Gastrointestinal Gastrointestinal: Reports diarrhea and nausea; Denies abdominal pain, constipation or vomiting Genitourinary Genitourinary ED: Reports other Details: Decreased urine output ; Denies dysuria, hematuria or urinary frequency Musculoskeletal Musculoskeletal: Reports arthralgias, back pain and myalgias; Denies neck pain Integumentary Denies Abrasions or rash Neurologic Neurologic: Reports headache(s) and weakness; Denies paresthesias Psychiatric Psychiatric: Denies anxiety or depression Endocrine Endocrinology: Denies polydipsia, polyphagia or polyuria Hematologic/Lymphatic Hematologic/Lymphatic: Denies easy bleeding or easy bruising EXAM Physical Exam Const Vital Signs: 03/14/21 08:59 03/14/21 09:49 03/14/21 10:11 Temperature 98.7 F 97.6 F L 97.6 F L Temperature Source Oral Temporal Oral Pulse Rate 115 H 100 92 Pulse Rate [Lying] Pulse Rate [Sitting] Pulse Rate [Standing] Respiratory Rate 20 H 18 13 Respiratory Effort Normal Non-Labored Respiratory Depth Normal Respiratory Pattern Normal Blood Pressure 137/103 H 127/95 H 132/90 H Blood Pressure [Lying] Blood Pressure [Sitting] Blood Pressure [Standing] Blood Pressure Mean 114 105 104 Blood Pressure Mean [Lying] Blood Pressure Mean [Sitting] Blood Pressure Mean [Standing] Pulse Ox 100 97 100 Oxygen Delivery Method Room Air Room Air Room Air 03/14/21 11:13 03/14/21 11:21 Temperature Temperature Source Pulse Rate 80 Pulse Rate [Lying] 95 Pulse Rate [Sitting] 98 Pulse Rate [Standing] 120 H Respiratory Rate 20 H Respiratory Effort Respiratory Depth Respiratory Pattern Blood Pressure 134/85 H Blood Pressure [Lying] 132/86 H Blood Pressure [Sitting] 130/99 H Blood Pressure [Standing] 138/95 H Blood Pressure Mean 101 Blood Pressure Mean [Lying] 101 Blood Pressure Mean [Sitting] 109 Blood Pressure Mean [Standing] 109 Pulse Ox 99 Oxygen Delivery Method Room Air Positive well nourished and well developed; Negative for unkempt General Appearance ED: well developed, NAD and other Patient does not appear well. She does not appear toxic. ; Negative for unkempt or pallor HEENT Reports TM's clear and dry mucous membranes; Denies moist mucous membranes atraumatic; Negative for tenderness Tympanic Membrane ED: Yes TM's clear Mouth ED: Yes dry mucous membranes Mouth: dry mucous membranes Eyes PERRL and EOMs intact bilaterally General Eye ED: Negative for pale conjunctiva or scleral icterus Neck no lymphadenopathy, supple, no meningeal signs and no JVD Resp normal respiratory effort and No clear to auscultation bilaterally Effort and Inspection: Negative for pain with movement Auscultation: rales right base and left lower, wheezes expiratory wheezes and scattered wheezes and diminished lung sounds; Negative for rhonchi Cardio regular rhythm, S1 normal heart sound, S2 normal heart sound and no murmurs Rate: tachycardic GI non-tender, non-distended and no masses Auscultation: normoactive bowel sounds Palpation: soft Neuro oriented x3 and CN's II-XII intact bilaterally Ellen Coma Scale: document GCS findings Spontaneous Obeys Commands Oriented 15 Sensorium / Orientation: alert Psych mental status grossly normal Appearance: Negative for unkempt Thought Process: normal thought process Skin no wounds General Skin Exam: Negative for jaundice or pallor Lesions: no lesions Rashes: no rashes MDM MDM MDM Narrative Medical decision making narrative: Patient presents with viral-like symptoms. With loss of taste concern patient has COVID. Chest x-ray is obtained because of auscultatory findings. CBC to rule out anemia as a cause of her dyspnea and dyspnea on exertion. Basic metabolic panel to assess renal function and electrolytes specifically potassium is because of reported diarrhea. Because she is wheezing albuterol was ordered as well as prednisone. Patient was informed of her chest x-ray results and her laboratory results. She states when she walked to the restroom she became lightheaded. Will check orthostatic vital signs. Patient's heart rate did improve with the 500 cc bolus. She has minimal expiratory wheezing noted on reexamination. 1100 time of reevaluation. Orthostatic vital signs are negative. Plan is discharged home with appropriate home-going instructions and symptomatic care Lab Data Labs: Laboratory Results - last 24 hr 03/14/21 03/14/21 09:24 09:24 WBC 6.3 RBC 4.55 Hgb 15.1 H Hct 44.6 MCV 98.0 MCH 33.2 H MCHC 33.9 RDW Std Deviation 48.4 H RDW Coeff of Marcy 13.3 Plt Count MPV 9.8 Immature Gran % (Auto) 0.300 Neut % (Auto) 69.3 Lymph % (Auto) 14.8 L [place] % (Auto) 8.0 Eos % (Auto) 7.0 H Baso % (Auto) 0.6 Absolute Neuts (auto) 4.3 Absolute Lymphs (auto) 0.93 Nucleated RBC % 0 Platelet Estimate ADEQUATE Sodium 138 Potassium 3.6 Chloride 106 Carbon Dioxide 25.0 Anion Gap 7 BUN 9 Creatinine 0.98 Estim Creat Clear Calc 63.75 Est GFR (MDRD) Af Amer 81 Est GFR (MDRD) Non-Af 67 BUN/Creatinine Ratio 9.1 L Glucose 98 Calcium 8.8 Total Bilirubin 0.60 AST 30 ALT 33 Alkaline Phosphatase 63 Total Protein 7.9 Albumin 3.7 Globulin 4.2 Albumin/Globulin Ratio 0.9 Radiography Chest X-Ray - ED: 1 View, Read by ED Physician, Normal, Heart, Lungs, Mediastinum, Bony Structures and No Acute Disease Diagnostic Testing: Clinical Impression(s) from Imaging Studies Chest X-Ray 03/14/21 09:30 IMPRESSION: The lungs are clear. Electronically Signed: Tushar Silver MD at 10:11 EST , Service support , EKG Initial EKG: Attestation: I personally reviewed and interpreted this EKG as follows: Interpretation: Sinus Tachycardia (Sinus tachycardia with ventricular rate 107. CT interval is 136 ms. Cures duration 78 ms. QT duration 330 ms. Chilo is to the left.) Discharge Plan Triage Chief Complaint: Shortness of Breath ED Provider: Isaiah Krause Dx/Rx/DC Orders Clinical Impression: Acute bronchitis with wheezing, Dehydration, mild, Sinus tachycardia, Orthostatic dizziness Instructions: Acute Bronchitis Prescriptions: New prednisone 20 MG tablet 60 mg PO DAILY Qty: 15 RF: 0 No Action NK RF: 0 Primary Care Provider: Care Physician,No Primary Referrals: Care Physician,No Primary [Primary Care Provider] - Doctor,Your [STAFF PHYSICIAN] - 1 Week if not improving Activity Restrictions/Additional Instructions: 1. 2 puffs of inhaler every 2-4 hours while awake for the next 2 to 3 days then every 4-6 hours as needed for wheezing. 2. You were prescribed prednisone because you still have wheezing on reevaluation. 3. Increase fluid intake 4. The name of your doctor is listed on your insurance card supplied to you by [facility]. Disposition Disposition: Home, Self Care
[2021-03-14 09:49] VITALS: BP 127/95; PULSE 100; RESP 18; TEMP 36.4; O2SAT 100; O2SAT 97
[2021-03-14 09:55] LABS: ALB/GLOB Ratio 0.9 RATIO (0.9-2.4); AST(SGOT) 30 U/L (15-37); Alanine Aminotransfer ALT/SGPT 33 U/L (13-56); Albumin, Serum 3.7 g/dL (3.2-5.0); Alkaline Phosphatase 63 U/L (45-117); Anion Gap 7 (5-15); BUN 9 mg/dL (7-18); BUN/Creat Ratio 9.1 RATIO (10-20); Calcium,Total 8.8 mg/dL (8.5-10.1); Chloride 106 mmol/L (98-107); Creatinine, Serum 0.98 mg/dL (0.55-1.02); EST Glomerular Filtration Rate 67 mL/min (>60); Est Glom Filt Rate - Afr Amer 81 mL/min (>60); Estimated Creatinine Clearance 63.75 ml/min; Globulin 4.2 g/dL (2.2-4.2); Glucose 98 mg/dL (74-106); Potassium 3.6 mmol/L (3.5-5.1); Protein, Total 7.9 g/dL (6.4-8.2); Sodium Level 138 mmol/L (136-145)
[2021-03-14] MEDS: predniSONE 20 MG Tablet 60 MG PO (10:07)
[2021-03-14 10:11] VITALS: BP 132/90; PULSE 92; RESP 13; TEMP 36.4; O2SAT 100
[2021-03-14 10:12] LABS: Differential Indicated SCAN CRITERIA MET; Platelet Estimate ADEQUATE (ADEQ)
[2021-03-14 11:13] VITALS: BP 134/85; PULSE 80; RESP 20; O2SAT 99
[2021-03-14 11:21] VITALS: BP 130/99; BP 132/86; BP 138/95; PULSE 120; PULSE 95; PULSE 98
== END 2021-03-14 11:51 | disposition home or self-care (01) ==
PROVIDERS: Emergency Provider Emergency Medicine; Visit Provider Emergency Medicine
DX: J20.9 Acute bronchitis, unspecified (principal); E86.0 Dehydration; R00.0 Tachycardia, unspecified; R42 Dizziness and giddiness; F17.210 Nicotine dependence, cigarettes, uncomplicated
CPT/HCPCS: 71045; 80053; 85025; 87426; 93005; 99284; A4216